=== PATIENT | male | born 1965 | race Two or more races ===

== ENCOUNTER 2025-01-16 17:41 | Emergency (ER) | payer MEDICAID, OTHER ==
[~2025-01-16] VITALS: Ht 165.1 cm; Wt 50.5 kg
--- NOTE | 2025-01-16 18:06 | ED.PDOC ---
History of Present Illness(SKN HPI Comments 59 year old male presents to the ED with chief complaint of mass to back. Patient reports that he has been experience a mass to the right lower back, noting that it has increased in size since it started 3 weeks ago. Patient relays that it has been painful to sleep on his back along with it being painful to twist his body. Patient denies any difficulty urinating, constipation, abdominal pain, fever, chills, dizziness, dysuria, or hematuria. Time Seen by MD: 17:59 History of Present Illness: Nurses Notes, Medications, Allergies Allergies: Coded Allergies: NO KNOWN ALLERGIES (Unverified , 01/16/25) Information Source: Patient Mode of Arrival: Ambulatory Severity: Moderate Timing: Weeks Duration: Since onset Prehospital treatment: None Location: Back Mechanism: Spontaneous Onset Object: None Condition of Object: None Retained Foreign Body: No Wound Type: Unknown Past Medical History PAST MEDICAL HISTORY: Denies Surgical History: Denies all surgeries Family History Family History: Reviewed,noncontributory to illness Social History Smoker: Non-Smoker Alcohol: Denies ETOH Use Drugs: Denies Drug Use Lives In: Home Constitutional: denies: chills, diaphoresis, fatigue, fever, malaise, sweats, weakness, others EENTM: denies: blurred vision, double vision, ear bleeding, ear discharge, ear drainage, ear pain, ear ringing, eye pain, eye redness, hearing loss, mouth pain, mouth swelling, nasal discharge, nose bleeding, nose congestion, nose pain, photophobia, tearing, throat pain, throat swelling, voice changes, others Respiratory: denies: cough, hemoptysis, orthopnea, SOB at rest, shortness of breath, SOB with excertion, stridor, wheezing, others Cardiovascular: denies: chest pain, dizzy spells, diaphoresis, Dyspnea on ex ertion, edema, irregular heart beat, left arm pain, lightheadedness, palpitations, PND, syncope, others Gastrointestinal: denies: abdomen distended, abdominal pain, blood streaked bowels, constipated, diarrhea, dysphagia, difficulty swallowing, hematemesis, melena, nausea, poor appetite, poor fluid intake, rectal bleeding, rectal pain, vomiting, others Genitourinary: denies: burning, dysuria, flank pain, frequency, hematuria, incontinence, penile discharge, penile sore, pain, testicle pain, testicle swelling, urgency, others Neurological: denies: dizziness, fainting, headache, left sided numbness, left sided weakness, numbness, paresthesia, pre-existing deficit, right sided numbness, right sided weakness, seizure, speech problems, tingling, tremors, weakness, others Musculoskeletal: denies: back pain, gout, joint pain, joint swelling, muscle pain, muscle stiffness, neck pain, others Integumetry: reports: others (Soccer ball sized mass to the right lower back); denies: bruises, change in color, change in hair/nails, dryness, laceration, lesions, lumps, rash, wounds Allergic/Immunocompromised: denies: Difficulty Healing, Frequent Infections, Hives, Itching, others Hematologic/Lymphatic: denies: anemia, blood clots, easy bleeding, easy bruising, swollen glands, others Endocrine: denies: excessive hunger, excessive sweating, excessive thirst, excessive urination, flushing, intolerance to cold, intolerance to heat, unexplained weight gain, unexplained weight loss, others Psychiatric: denies: anxiety, bipolar disorder, depression, hopeless, panic disorder, schizophrenia, sleepless, suicidal, others All Other Systems: Reviewed and Negative Physical Exam General Appearance: No Apparent Distress, Normal HEENT: Normal ENT Inspection, PERRL/EOMI Neck: Full Range of Motion, Non-Tender, Normal, Normal Inspection Respiratory: Chest Non-Tender, Lungs Clear, No Accessory Muscle Use, No Respiratory Distress, Normal Breath Sounds Cardiovascular: No Edema, No JVD, No Murmur, No Gallop, Normal Peripheral Pulses, Regular Rate/Rhythm Breast Exam: Deferred Gastrointestinal: No Organomegaly, Non Tender, No Pulsatile Mass, Normal Bowel Sounds, Soft Genitalia: Deferred Pelvic: Deferred Rectal: Deferred Extremities: No calf tenderness, Normal capillary refill, Normal inspection, Normal range of motion, Non-tender, No pedal edema Musculoskeletal : Apperance: Normal Neurologic: Alert, 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 Was a procedure done?: No X-Ray, Labs, Meds, VS Vital Signs Date Time Temp Pulse Resp B/P (MAP) Pulse Ox O2 Delivery O2 Flow Rate FiO2 01/16/25 17:55 97.7 113 20 110/55 (73) 100 Lab Test 01/16/25 18:30 Range/Units White Blood Count 9.5 4.4-10.8 10^3/uL Red Blood Count 4.11 L 4.5-5.90 10^6/uL Hemoglobin 11.0 L 13.5-17.5 g/dL Hematocrit 33.9 L 41.0-53.0 % Mean Corpuscular Volume 82.4 80.0-100.0 fL Mean Corpuscular Hemoglobin 26.7 L 28.0-32.0 pg Mean Corpuscular Hemoglobin Concent 32.4 32.0-36.0 g/dL Red Cell Distribution Width 14.8 H 11.8-14.3 % Platelet Count 570 H 140-450 10^3/uL Mean Platelet Volume 7.1 6.9-10.8 fL Neutrophils (%) (Auto) 69.9 37.0-80.0 % Lymphocytes (%) (Auto) 20.4 10.0-50.0 % Monocytes (%) (Auto) 8.5 0.0-12.0 % Eosinophils (%) (Auto) 0.6 0.0-7.0 % Basophils (%) (Auto) 0.6 0.0-2.0 % Neutrophils # (Auto) 6.6 1.6-8.6 10 ^3/uL Lymphocytes # (Auto) 1.9 0.4-5.4 10 ^3/uL Monocytes # (Auto) 0.8 0-1.3 10 ^3/uL Eosinophils # (Auto) 0.1 0-0.8 10 ^3/uL Basophils # (Auto) 0.1 0-0.2 10 ^3/uL Nucleated Red Blood Cells 0.1 % Sodium Level Pending Potassium Level Pending Chloride Level Pending Carbon Dioxide Level Pending Anion Gap Pending Blood Urea Nitrogen Pending Creatinine Pending Glomerular Filtration Rate Calc Pending BUN/Creatinine Ratio Pending Serum Glucose Pending Lactic Acid Level Pending Calcium Level Pending Total Bilirubin Pending Aspartate Amino Transferase (AST) Pending Alanine Aminotransferase (ALT) Pending Alkaline Phosphatase Pending Total Protein Pending Albumin Pending X-Ray, Labs, Meds, VS Comment Patient will be admitted for abscess to the right flank, osteomyelitis of the 12th rib and possibly L1 vertebrae Patient to be started on vancomycin Pending lactic acid, blood cultures happened drawn Recommend urology consult, spinal surgeon consult, Time of 1ST Reevaluation: 18:59 Reevaluation 1ST: Unchanged Patient Education/Counseling: Diagnosis, Treatment Family Education/Counseling: No Family Present Departure 1 Departure Time of Disposition: 19:29 Impression: Primary Impression: Abscess Additional Impression: Osteomyelitis Qualified Codes: M86.09 - Acute hematogenous osteomyelitis, multiple sites Disposition: ADMITTED INPATIENT Condition: Guarded Critical Care Note Critical Care Time?: No Stability Stability form required: No Heart Score Heart Score: Heart Score Response (Comments) Value History N/A 0 EKG N/A 0 Age N/A 0 Risk Factors N/A 0 Troponin N/A 0 Total 0 I personally scribed for PIERO SQUIRES ([email or web address]) on 01/16/25 at 18:06. Electronically submitted by Jasbir Galvan ([email or web address]). PIERO SQUIRES Jan 16, 2025 18:06
--- NOTE | 2025-01-16 19:04 | DVH ---
Procedure: CT CT AB PEL WO CON-NO ORAL OR IV 01/16/2025 06:03 PM Indication: mass Comparison Study: None Technique: Axial images were obtained and reformatted in coronal and sagittal planes. All CT scans at this medical facility are performed using dose modulation techniques as appropriate to a performed e xam including the following: Automated exposure control was utilized; adjustment of the MA and/or KV according to patient size; and use of iterative reconstruction technique. CT Dose: CTDI volume is 6.1 6 mGy. Dose-length product is 320.03 mGy*cm FINDINGS: Lower Chest: Small right pleural effusion with mild adjacent pulmonary opacities. Small pericardial e ffusion. Suggestion of anemia. Hepatobiliary: Unremarkable. Spleen: Unremarkable. Pancreas: Unremarkable. Adrenal Glands: Unremarkable. tract: The kidneys are normal in size bilaterally without hydronephrosis or nephrolithiasis. The u rinary bladder is unremarkable. GI tract: The stomach is grossly normal in appearance. No evidence of small bowel obstruction. The la rge bowel is unremarkable. The appendix is normal. Lymphatics: No mesenteric, retroperitoneal or periportal lymphadenopathy. Vasculature: The abdominal aorta is normal in in caliber. Pelvic Organs: Unremarkable Bones/soft tissues: Large, 12.4 x 6.7 x 8.1 cm partially septated complex fluid collection in the rig ht posterior abdominal wall with overlying subcutaneous fat stranding, cortical irregularity of the a djacent right 12th rib large adjacent right posterior pararenal fluid collection extending from the d iaphragm to the level of the inferior pole of the right kidney. There is thinning and irregularity of the cortex of the right L1 transverse process with no underlying erosion. Other: None. IMPRESSION: 1. Suboptimal exam without IV contrast. 2. Large, 12.4 cm subcutaneous right posterior abdominal wall abscess with partial erosion an osteomy elitis of the right 12th rib with extension of the infection to the retroperitoneal space involving t he right posterior pararenal space, where an abscess is seen extending from the right hemidiaphragm t o the level of the inferior pole of the right kidney with mass effect on the kidney and possible asso ciated nephritis. No hydronephrosis to suggest pyelonephritis . In addition, developing osteomyelitis of the right transverse process of L1 can not be ruled out. Moreover, there is small reactive right pleural effusion with mild adjacent compressive atelectasis. Recommend interventional or urology cons ultation for drainage of the abscesses. These fluid collections seen amenable to ultrasound-guided dr rice.
[2025-01-16 19:09] LABS: Eosinophils # (auto) 0.1 10 ^3/uL (0-0.8); Eosinophils % (auto) 0.6 % (0.0-7.0); Lymphocytes # (auto) 1.9 10 ^3/uL (0.4-5.4); Nucleated Red Blood Cells % 0.1 %
[2025-01-16 19:10] LABS: Basophils # (auto) 0.1 10 ^3/uL (0-0.2); Basophils % (auto) 0.6 % (0.0-2.0); Hematocrit 33.9 % (41.0-53.0); Lymphocytes % (auto) 20.4 % (10.0-50.0); Mean Corpuscular Hemoglobin 26.7 pg (28.0-32.0); Mean Corpuscular Hgb Conc. 32.4 g/dL (32.0-36.0); Mean Corpuscular Volume 82.4 fL (80.0-100.0); Monocytes # (auto) 0.8 10 ^3/uL (0-1.3); Monocytes % (auto) 8.5 % (0.0-12.0); Neutrophils # (auto) 6.6 10 ^3/uL (1.6-8.6); Neutrophils % (auto) 69.9 % (37.0-80.0); Platelet Count (auto) 570 10^3/uL (140-450); Red Blood Cells 4.11 10^6/uL (4.5-5.90); Red Cell Distribution Width 14.8 % (11.8-14.3); White Blood Cell 9.5 10^3/uL (4.4-10.8)
[2025-01-16 19:32] LABS: Alanine Aminotransferase 16 U/L (7-40); Albumin 3.2 g/dL (3.2-4.8); Alkaline Phosphatase 81 U/L (46-116); Anion Gap 11 (5-15); Aspartate Aminotransferase 25 U/L (13-40); BUN/Creatinine Ratio 20.5 (10.0-20.0); Bilirubin, Total 0.3 mg/dL (0.2-1.0); Blood Urea Nitrogen 15 mg/dL (9-23); Calcium 9.5 mg/dL (8.7-10.4); Carbon Dioxide 26 mmol/L (20-31); Potassium 4.8 mmol/L (3.5-5.1); Total Protein 7.4 g/dL (5.7-8.2)
[2025-01-16 19:35] LABS: Chloride 96 mmol/L (98-107); Glucose 197 mg/dL (74-106); Sodium 133 mmol/L (136-145)
[2025-01-16 20:11] LABS: Lactic Acid w/Reflex 2.8 mmol/L (0.4-2.0)
[2025-01-16] MEDS: SODIUM CHLORIDE 0.9% 1,000 ML IV ONE (21:00)
[2025-01-16] MEDS: VANCOMYCIN 1GM/250ML KIT 250 ML IV ONE (21:20)
[2025-01-17 00:09] VITALS: BP 119/74; PULSE 99; RESP 20; TEMP 97.8; O2SAT 99
[2025-01-17] MEDS: PIPERACILLIN-TAZOB 3.375GM 100 ML IV ONE (00:22)
[2025-01-17] MEDS: SODIUM CHLORIDE 0.9% 1,850 ML IV ONE (00:22)
== END 2025-01-17 00:35 | disposition short-term general hospital (02) ==
LOC: ER 17:41
DX: L02.212 Cutaneous abscess of back [any part, except buttock and flank] (principal); M86.9 Osteomyelitis, unspecified
CPT/HCPCS: 36415; 74176; 80053; 83605; 85025; 87040; 96365; 99285; J3370